=== PATIENT | female | born 1965 | race African-American/Black ===

== ENCOUNTER 2017-03-09 17:51 | Emergency (ER) | payer MEDICARE, BC ==
[2017-03-09 18:40] LABS: #Basophils 0.1 thou/uL (0.0-0.2); #Eosinphils 0.3 thou/uL (0.0-0.7); #Lymphocytes 3.4 thou/uL (1.20-3.40); #Monocytes 0.3 thou/uL (0.11-0.59); #Neutrophils 3.4 thou/uL (1.40-6.50); %Basophils 1.5 % (0.0-1.0); %Eosinophils 3.3 % (0.0-10.0); %Lymphocytes 45.4 % (21.0-51.0); %Monocytes 4.4 % (0.0-10.0); %Neutrophils 45.4 % (42.0-75.0); Hemoglobin 12.2 g/dL (12.0-16.0); Mean Corpuscular HGB CONC 32.6 g/dL (32.0-36.0); Mean Corpuscular Hemoglobin 29.6 pg (27.0-31.0); Mean Corpuscular Volume 90.9 fl (81.0-99.0); Mean Platelet Volume 10.4 fL (7.4-10.4); Platelet Count 158 thou/uL (130-400); RBC Distribution Width 11.7 % (11.5-14.5); Red Blood Cell (RBC) Count 4.12 mill/uL (4.20-5.40); White Blood Cell (WBC) Count 7.5 thou/uL (4.8-10.8)
[2017-03-09 18:50] LABS: ALT (SGPT) 19 U/L (0-55); AST (SGOT) 19 U/L (5-34); Albumin 3.8 g/dL (3.5-5.0); Alkaline Phosphatase 95 U/L (40-150); Anion Gap 15 mmol/L (10-20); BUN (Urea Nitrogen) 16 mg/dL (9.8-20.1); Bilirubin, Total 0.5 mg/dL (0.2-1.2); CK (CPK) 161 U/L (29-168); Calc. Creatinine Clearance 0 mL/min (70-130); Calcium 9.1 mg/dL (7.8-10.44); Carbon Dioxide 23 mmol/L (22-29); Chloride 104 mmol/L (98-107); Estimated GFR-MDRD 87; Globulin 3.4 g/dL (2.4-3.5); Lipase 73 U/L (8-78); Potassium 3.7 mmol/L (3.5-5.1); Protein, Total 7.2 g/dL (6.0-8.3); Sodium 138 mmol/L (136-145)
[2017-03-09 18:52] LABS: Glucose 143 mg/dL (70-105)
[2017-03-09 18:53] LABS: CKMB 2.1 ng/mL (0-6.6); Troponin I Less than 0.010 ng/mL (< 0.028)
--- NOTE | 2017-03-09 19:49 | RAD ---
RADIOGRAPH CHEST 1 VIEW: HISTORY: 51-year-old female with acute chest pain radiating to the left upper extremity. FINDINGS: There is no air space density, pulmonary edema, or pneumothorax. The lateral costophrenic angles ar e sharp. IMPRESSION: No acute pulmonary findings. li POS: [facility]
== END 2017-03-09 19:28 | disposition home or self-care (01) ==
LOC: NAV ERS 17:51
DX: M25.512 Pain in left shoulder (principal); F41.9 Anxiety disorder, unspecified; J44.9 Chronic obstructive pulmonary disease, unspecified; I25.10 Atherosclerotic heart disease of native coronary artery without angina pectoris; E03.9 Hypothyroidism, unspecified; K21.9 Gastro-esophageal reflux disease without esophagitis; E78.5 Hyperlipidemia, unspecified; E78.00 Pure hypercholesterolemia, unspecified; I10 Essential (primary) hypertension; F32.9 Major depressive disorder, single episode, unspecified; Z87.891 Personal history of nicotine dependence; Z79.899 Other long term (current) drug therapy; Z79.82 Long term (current) use of aspirin
CPT/HCPCS: 71010; 80053; 82553; 83690; 83880; 84484; 85025; 93005

== ENCOUNTER 2017-07-10 18:27 | Emergency (ER) | payer MEDICARE, BC ==
[2017-07-10] MEDS ORDERED: diphenhydrAMINE HCl 50 MG/ML 1 ML VIAL ONE (18:44)
[2017-07-10] MEDS ORDERED: predniSONE 20 MG TAB ONE (18:44)
== END 2017-07-10 19:44 | disposition home or self-care (01) ==
LOC: NAV ERS 18:27
DX: L50.0 Allergic urticaria (principal); I25.10 Atherosclerotic heart disease of native coronary artery without angina pectoris; J44.9 Chronic obstructive pulmonary disease, unspecified; I10 Essential (primary) hypertension; I49.9 Cardiac arrhythmia, unspecified; D64.9 Anemia, unspecified; K21.9 Gastro-esophageal reflux disease without esophagitis; E03.9 Hypothyroidism, unspecified; E78.5 Hyperlipidemia, unspecified; F41.9 Anxiety disorder, unspecified; F32.9 Major depressive disorder, single episode, unspecified; Z87.891 Personal history of nicotine dependence; Z79.82 Long term (current) use of aspirin; Z79.899 Other long term (current) drug therapy
CPT/HCPCS: 96372; J1200; J7506

== ENCOUNTER 2017-09-01 19:08 | Emergency (ER) | payer MEDICARE, BC ==
[2017-09-01] MEDS ORDERED: Ibuprofen 200 MG TAB ONE (19:51)
[2017-09-01] MEDS ORDERED: Acetaminophen 500 MG TAB ONE (19:54)
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
== END 2017-09-01 20:11 | disposition home or self-care (01) ==
LOC: NAV ERS 19:08
DX: S60.221A Contusion of right hand, initial encounter (principal); J44.9 Chronic obstructive pulmonary disease, unspecified; I25.10 Atherosclerotic heart disease of native coronary artery without angina pectoris; K21.9 Gastro-esophageal reflux disease without esophagitis; E03.9 Hypothyroidism, unspecified; E78.5 Hyperlipidemia, unspecified; I50.9 Heart failure, unspecified; I10 Essential (primary) hypertension; F41.9 Anxiety disorder, unspecified; F32.9 Major depressive disorder, single episode, unspecified; Z87.891 Personal history of nicotine dependence; Z79.52 Long term (current) use of systemic steroids; Z79.899 Other long term (current) drug therapy; W23.0XXA Caught, crushed, jammed, or pinched between moving objects, initial encounter

== ENCOUNTER 2017-11-14 12:51 | Emergency (ER) | payer BC, MEDICARE ==
[2017-11-14 14:23] LABS: #Basophils 0.1 thou/uL (0.0-0.2); #Eosinphils 0.1 thou/uL (0.0-0.7); #Lymphocytes 2.4 thou/uL (1.20-3.40); #Monocytes 0.5 thou/uL (0.11-0.59); #Neutrophils 3.4 thou/uL (1.40-6.50); %Eosinophils 1.8 % (0.0-10.0); %Lymphocytes 36.6 % (21.0-51.0); %Monocytes 7.2 % (0.0-10.0); %Neutrophils 52.4 % (42.0-75.0); Hemoglobin 13.3 g/dL (12.0-16.0); Mean Corpuscular HGB CONC 33.1 g/dL (32.0-36.0); Mean Corpuscular Hemoglobin 29.9 pg (27.0-31.0); Mean Corpuscular Volume 90.4 fl (81.0-99.0); Mean Platelet Volume 12.2 fL (7.4-10.4); Platelet Count 179 thou/uL (130-400); Red Blood Cell (RBC) Count 4.44 mill/uL (4.20-5.40); White Blood Cell (WBC) Count 6.5 thou/uL (4.8-10.8)
[2017-11-14 14:24] LABS: ALT (SGPT) 22 U/L (8-55); AST (SGOT) 23 U/L (5-34); Albumin 4.2 g/dL (3.5-5.0); Alkaline Phosphatase 101 U/L (40-150); Anion Gap 15 mmol/L (10-20); BUN (Urea Nitrogen) 18 mg/dL (9.8-20.1); Bilirubin, Total 0.6 mg/dL (0.2-1.2); Calc. Creatinine Clearance 0 mL/min (70-130); Carbon Dioxide 26 mmol/L (22-29); Chloride 103 mmol/L (98-107); Estimated GFR-MDRD Greater than 90; Globulin 3.5 g/dL (2.4-3.5); Glucose 92 mg/dL (70-105); Potassium 3.6 mmol/L (3.5-5.1); Protein, Total 7.7 g/dL (6.0-8.3); Sodium 140 mmol/L (136-145)
[2017-11-14 14:26] LABS: CKMB 2.6 ng/mL (0-6.6); Troponin I Less than 0.010 ng/mL (< 0.028)
--- NOTE | 2017-11-14 15:27 | RAD ---
2 VIEWS CHEST: Date: 11/14/17 HISTORY: Chest pain. FINDINGS: Comparison made to previous exam from 03/09/17. PA and lateral views of chest obtained. The lungs are well aerated. No evidence of active intrathorac ic disease seen. No evidence of effusions, pneumonia, or pneumothorax seen. IMPRESSION: Normal 2 views chest. POS: [facility]
== END 2017-11-14 15:22 | disposition home or self-care (01) ==
LOC: NAV ERS 12:51
DX: B34.9 Viral infection, unspecified (principal); H65.93 Unspecified nonsuppurative otitis media, bilateral; G47.30 Sleep apnea, unspecified; J44.9 Chronic obstructive pulmonary disease, unspecified; I25.10 Atherosclerotic heart disease of native coronary artery without angina pectoris; E03.9 Hypothyroidism, unspecified; K21.9 Gastro-esophageal reflux disease without esophagitis; E78.5 Hyperlipidemia, unspecified; I10 Essential (primary) hypertension; F41.9 Anxiety disorder, unspecified; F32.9 Major depressive disorder, single episode, unspecified; Z87.891 Personal history of nicotine dependence; Z79.82 Long term (current) use of aspirin; Z79.52 Long term (current) use of systemic steroids; Z79.899 Other long term (current) drug therapy
CPT/HCPCS: 36416; 71020; 80053; 82553; 84484; 85025; 93005

== ENCOUNTER 2019-06-08 08:20 | Emergency (ER) | payer SELFPAY ==
[2019-06-08 09:10] LABS: #Eosinphils 0.1 thou/uL (0.0-0.7); #Lymphocytes 1.8 thou/uL (1.20-3.40); #Monocytes 0.4 thou/uL (0.11-0.59); #Neutrophils 2.4 thou/uL (1.40-6.50); %Eosinophils 2.8 % (0.0-10.0); %Lymphocytes 38.4 % (21.0-51.0); %Monocytes 7.8 % (0.0-10.0); Hemoglobin 12.3 g/dL (12.0-16.0); Mean Corpuscular HGB CONC 31.6 g/dL (32.0-36.0); Mean Corpuscular Volume 88.8 fL (78.0-98.0); Platelet Count 172 thou/uL (130-400); RBC Distribution Width 11.5 % (11.5-14.5); Red Blood Cell (RBC) Count 4.39 mill/uL (4.20-5.40); White Blood Cell (WBC) Count 4.7 thou/uL (4.8-10.8)
[2019-06-08 09:24] LABS: ALT (SGPT) 20 U/L (8-55); AST (SGOT) 18 U/L (5-34); Albumin 3.9 g/dL (3.5-5.0); Alkaline Phosphatase 101 U/L (40-150); Anion Gap 14 mmol/L (10-20); BUN (Urea Nitrogen) 22 mg/dL (9.8-20.1); Bilirubin, Total 0.6 mg/dL (0.2-1.2); Calc. Creatinine Clearance 0 mL/min (70-130); Calcium 9.6 mg/dL (7.8-10.44); Carbon Dioxide 25 mmol/L (22-29); Chloride 105 mmol/L (98-107); Estimated GFR-MDRD Greater than 90; Globulin 3.2 g/dL (2.4-3.5); Glucose 102 mg/dL (70-105); Potassium 3.8 mmol/L (3.5-5.1); Protein, Total 7.1 g/dL (6.0-8.3); Sodium 140 mmol/L (136-145)
[2019-06-08] MEDS ORDERED: Ketorolac Tromethamine 30 MG/ML VIAL ONE (09:54)
[2019-06-08] MEDS ORDERED: Acetaminophen 500 MG TAB ONE (09:54)
--- NOTE | 2019-06-08 10:08 | RAD ---
CERVICAL SPINE 5 VIEWS: Date: 06/08/19 HISTORY: Left neck and arm pain. FINDINGS: Multilevel degenerative changes are present. There is loss of cervical lordosis with mild reversal. N o fracture, subluxation, or bony destruction is seen. The prevertebral soft tissues are normal. IMPRESSION: Cervical spondylosis. POS: [facility]
[2019-06-08 12:54] LABS: Troponin I Less than 0.010 ng/mL (< 0.028)
[2019-06-08] MEDS ORDERED: Aspirin Chewable 81 MG TAB ONE (13:50)
== END 2019-06-08 14:11 | disposition short-term general hospital (02) ==
LOC: NAV ERS 08:20
DX: M62.838 Other muscle spasm (principal); R94.31 Abnormal electrocardiogram [ECG] [EKG]; M79.602 Pain in left arm; I10 Essential (primary) hypertension; G47.30 Sleep apnea, unspecified; J44.9 Chronic obstructive pulmonary disease, unspecified; I25.10 Atherosclerotic heart disease of native coronary artery without angina pectoris; E03.9 Hypothyroidism, unspecified; K21.9 Gastro-esophageal reflux disease without esophagitis; F41.9 Anxiety disorder, unspecified; F32.9 Major depressive disorder, single episode, unspecified; Z87.891 Personal history of nicotine dependence; Z79.82 Long term (current) use of aspirin; Z79.899 Other long term (current) drug therapy
CPT/HCPCS: 36415; 72050; 80053; 84484; 85025; 93005; 96374; J1885

== ENCOUNTER 2019-11-26 14:14 | Emergency (ER) | payer SELFPAY ==
[2019-11-26] MEDS ORDERED: Cyclobenzaprine 10 MG TAB ONE (14:50)
[2019-11-26] MEDS ORDERED: methylPREDNISolone Sod Succ/PF 125 MG/2 ML VIAL ONE (14:50)
== END 2019-11-26 16:17 | disposition home or self-care (01) ==
LOC: NAV ERS 14:14
DX: M54.5 Low back pain (principal); J44.9 Chronic obstructive pulmonary disease, unspecified; I25.10 Atherosclerotic heart disease of native coronary artery without angina pectoris; I49.9 Cardiac arrhythmia, unspecified; I10 Essential (primary) hypertension; K21.9 Gastro-esophageal reflux disease without esophagitis; D50.9 Iron deficiency anemia, unspecified; E78.5 Hyperlipidemia, unspecified; E78.00 Pure hypercholesterolemia, unspecified; G47.30 Sleep apnea, unspecified; F41.9 Anxiety disorder, unspecified; F32.9 Major depressive disorder, single episode, unspecified; Z87.891 Personal history of nicotine dependence; Z79.82 Long term (current) use of aspirin; Z79.899 Other long term (current) drug therapy
CPT/HCPCS: 96372; 99283; J2930

== ENCOUNTER 2021-01-29 16:32 | Outpatient (CLI) | payer MEDICARE | END 2021-01-29 16:33 | disposition home or self-care (01) | LOC: NAV ERS 16:32 | PROVIDERS: ATTEND Internal Medicine | DX: M54.41 Lumbago with sciatica, right side (principal); G89.29 Other chronic pain; M47.816 Spondylosis without myelopathy or radiculopathy, lumbar region; M47.812 Spondylosis without myelopathy or radiculopathy, cervical region | CPT/HCPCS: 72125; 72131 ==

== ENCOUNTER 2022-07-01 09:25 | Outpatient (CLI) | payer MEDICARE, MEDICAID | END 2022-07-01 09:26 | disposition home or self-care (01) | LOC: NAV RAD 09:25 | PROVIDERS: ATTEND Family Medicine | DX: M25.551 Pain in right hip (principal) ==

== ENCOUNTER 2022-07-01 11:23 | Emergency (ER) | payer MEDICARE, MEDICAID ==
[2022-07-01] MEDS ORDERED: hydrALAZINE 20 MG/ML VIAL ONE (12:14)
[2022-07-01 12:27] LABS: Anion Gap 19 mmol/L (10-20); BUN (Urea Nitrogen) 11 mg/dL (9.8-20.1); Calc. Creatinine Clearance 0 mL/min (70-130); Calcium 10.1 mg/dL (7.8-10.44); Carbon Dioxide 21 mmol/L (22-29); Chloride 104 mmol/L (98-107); Estimated GFR 101; Glucose 99 mg/dL (70-105); Potassium 4.4 mmol/L (3.5-5.1); Sodium 140 mmol/L (136-145)
== END 2022-07-01 13:30 | disposition home or self-care (01) ==
LOC: NAV ERS 11:23
DX: I10 Essential (primary) hypertension (principal); Z87.891 Personal history of nicotine dependence; J44.9 Chronic obstructive pulmonary disease, unspecified; E03.9 Hypothyroidism, unspecified; K21.9 Gastro-esophageal reflux disease without esophagitis; E78.5 Hyperlipidemia, unspecified; Z79.899 Other long term (current) drug therapy; M25.551 Pain in right hip
CPT/HCPCS: 80048; 93005; 96374; J0360

== ENCOUNTER 2024-04-07 13:41 | Emergency (ER) | payer MEDICARE, MEDICAID ==
[2024-04-07] MEDS ORDERED: Metoclopramide HCl 10 MG (2 mL) VIAL ONE (14:13)
[2024-04-07] MEDS ORDERED: hydrALAZINE 20 MG/ML VIAL ONE (14:13)
[2024-04-07] MEDS ORDERED: Sodium Chloride 0.9% 1,000 ML ONE (14:13)
[2024-04-07] MEDS ORDERED: Sodium Chloride 0.9% 100 ML ONE (14:13)
[2024-04-07] MEDS ORDERED: diphenhydrAMINE 50 MG/ML VIAL ONE (14:13)
[2024-04-07 14:17] LABS: #Basophils 0.1 thou/uL (0.0-0.2); #Eosinphils 0.1 thou/uL (0.0-0.7); #Lymphocytes 3.1 thou/uL (1.20-3.40); #Monocytes 0.4 thou/uL (0.11-0.59); #Neutrophils 2.2 thou/uL (1.40-6.50); %Basophils 1.3 % (0.0-1.0); %Eosinophils 2.1 % (0.0-10.0); %Lymphocytes 52.4 % (21.0-51.0); %Monocytes 6.5 % (0.0-10.0); %Neutrophils 37.7 % (42.0-75.0); Hematocrit 40.1 % (36.0-47.0); Hemoglobin 12.9 g/dL (12.0-16.0); Mean Corpuscular HGB CONC 32.2 g/dL (32.0-36.0); Mean Corpuscular Hemoglobin 29.2 pg (27.0-31.0); Mean Corpuscular Volume 90.7 fl (78.0-98.0); Mean Platelet Volume 8.5 fL (7.4-10.4); Platelet Count 212 10x3/uL (130-400); RBC Distribution Width 10.9 % (11.5-14.5); Red Blood Cell (RBC) Count 4.42 mill/uL (4.20-5.40); White Blood Cell (WBC) Count 5.9 10x3/uL (4.8-10.8)
[2024-04-07 14:29] LABS: ALT (SGPT) 33 U/L (8-55); AST (SGOT) 29 U/L (5-34); Albumin 4.3 g/dL (3.5-5.0); Alkaline Phosphatase 116 U/L (40-110); Anion Gap 16 mmol/L (10-20); BUN (Urea Nitrogen) 13 mg/dL (9.8-20.1); Bilirubin, Total 0.6 mg/dL (0.2-1.2); Calc. Creatinine Clearance 0 mL/min (70-130); Carbon Dioxide 24 mmol/L (22-29); Chloride 104 mmol/L (98-107); Estimated GFR 92; Globulin 3.6 g/dL (2.4-3.5); Glucose 96 mg/dL (70-105); Potassium 3.9 mmol/L (3.5-5.1); Protein, Total 7.9 g/dL (6.0-8.3); Sodium 140 mmol/L (136-145)
== END 2024-04-07 17:36 | disposition home or self-care (01) ==
LOC: NAV ERS 13:41
DX: I10 Essential (primary) hypertension (principal); J44.9 Chronic obstructive pulmonary disease, unspecified; I25.10 Atherosclerotic heart disease of native coronary artery without angina pectoris; E03.9 Hypothyroidism, unspecified; E78.00 Pure hypercholesterolemia, unspecified; F17.210 Nicotine dependence, cigarettes, uncomplicated; Z79.82 Long term (current) use of aspirin; Z79.899 Other long term (current) drug therapy
CPT/HCPCS: 80053; 85025; 93005; 96365; 96375; 99284; J0360; J1200; J2765; J7050

== ENCOUNTER 2024-10-02 12:54 | Emergency (ER) | payer MEDICARE, MEDICAID, OTHER ==
[2024-10-02] MEDS ORDERED: Ibuprofen 200 MG TAB ONE (13:14)
== END 2024-10-02 14:43 | disposition home or self-care (01) ==
LOC: NAV ERS 12:54
DX: S06.0X9A Concussion with loss of consciousness of unspecified duration, initial encounter (principal); S00.03XA Contusion of scalp, initial encounter; J44.9 Chronic obstructive pulmonary disease, unspecified; I25.10 Atherosclerotic heart disease of native coronary artery without angina pectoris; I10 Essential (primary) hypertension; Z79.82 Long term (current) use of aspirin; Z79.899 Other long term (current) drug therapy; Z87.891 Personal history of nicotine dependence; W01.10XA Fall on same level from slipping, tripping and stumbling with subsequent striking against unspecified object, initial encounter
CPT/HCPCS: 70450; 70486; 72125

== ENCOUNTER 2025-07-12 12:28 | Outpatient (CLI) | payer MEDICARE | END 2025-07-12 12:29 | disposition home or self-care (01) | LOC: NAV RAD 12:28 | PROVIDERS: ATTEND Family Medicine | DX: M48.02 Spinal stenosis, cervical region (principal); M48.062 Spinal stenosis, lumbar region with neurogenic claudication; R22.42 Localized swelling, mass and lump, left lower limb; M51.369 Other intervertebral disc degeneration, lumbar region without mention of lumbar back pain or lower extremity pain; M47.816 Spondylosis without myelopathy or radiculopathy, lumbar region; M19.072 Primary osteoarthritis, left ankle and foot; Z98.890 Other specified postprocedural states | CPT/HCPCS: 72040; 72100 ==

== ENCOUNTER 2025-11-02 12:19 | Emergency (ER) | payer MEDICARE, MEDICAID ==
[2025-11-02] MEDS ORDERED: HYDROcodone/Acetaminophen 10/325 mg Tablet ONE (12:53)
== END 2025-11-02 14:09 | disposition home or self-care (01) ==
LOC: NAV ERS 12:19
DX: M25.511 Pain in right shoulder (principal); E78.00 Pure hypercholesterolemia, unspecified; I10 Essential (primary) hypertension; I25.10 Atherosclerotic heart disease of native coronary artery without angina pectoris; J44.9 Chronic obstructive pulmonary disease, unspecified; Z95.5 Presence of coronary angioplasty implant and graft; Z79.82 Long term (current) use of aspirin; Z79.899 Other long term (current) drug therapy; Z79.51 Long term (current) use of inhaled steroids; Z79.891 Long term (current) use of opiate analgesic
CPT/HCPCS: 99283